=== PATIENT | female | born 1965 | race American Indian/Alaskan Native ===

== ENCOUNTER 2016-10-20 00:07 | Emergency (ER) | payer MEDICAID, MEDICARE ==
[2016-10-20] MEDS ORDERED: NACL 0.9% 1000 ML 1,000 ML IV ONE (01:03)
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
[2016-10-20 02:08] LABS: BUN/Creatinine Ratio 11.66; Calcium 8.1 mg/dL (8.4-10.2); Chloride 101.6 mmol/L (98-107); Potassium 4.4 mmol/L (3.6-5.0)
[2016-10-20 02:19] LABS: Mean Corpuscular HGB Conc 28 % (30-34); Platelet Count 283 K/mm3 (140-440); White Blood Count 13.6 K/mm3 (4.5-11.0)
[2016-10-20 02:27] LABS: Hematocrit 14.8 % (30.3-42.9); Hemoglobin 4.2 gm/dl (10.1-14.3); Mean Corpuscular Hemoglobin 19 pg (28-32); Mean Corpuscular Volume 67 fl (79-97); Red Cell Distribution Width 21.1 % (13.2-15.2)
[2016-10-20 02:44] LABS: Partial Thromboplastin Time < 20.0 Sec. (24.2-36.6)
--- NOTE | 2016-10-20 03:23 | Ultrasound Report ---
FINAL REPORT PROCEDURE: US PELVIC COMPLETE TECHNIQUE: Real-time transabdominal sonography in multiple planes of pelvis was performed with image documentation. This examination was performed without Doppler. Vascular abnormalities, including ovarian torsion, will not be detectable without Doppler evaluation. CPT 99875 HISTORY: pelvic pain, vaginal bleeding COMPARISON: No prior studies are available for comparison. FINDINGS: Uterus and ovaries are not identified. There is a large complex cystic mass in the pelvis measuring 18.6 x 7.8 x 10.1 centimeters. This contains debris and septations. This could be a large ovarian cyst or cystic ovarian neoplasm. Other cystic neoplasm or abscess not excluded. CT of the abdomen and pelvis suggested for further evaluation. No free pelvic fluid is discretely identified. IMPRESSION: Uterus and ovaries are not identified. There is a large complex cystic mass in the pelvis measuring 18.6 x 7.8 x 10.1 centimeters. Please see details above.
--- NOTE | 2016-10-20 03:23 | Ultrasound Report ---
FINAL REPORT PROCEDURE: US PELVIC TRANSVAGINAL TECHNIQUE: Real-time transvaginal sonography in multiple planes of pelvis was performed with image documentation. This examination was performed without Doppler. Vascular abnormalities, including ovarian torsion, will not be detectable without Doppler evaluation. HISTORY: pelvic pain, vaginal bleeding COMPARISON: No prior studies are available for comparison. FINDINGS: Uterus and ovaries are not identified. There is a large complex cystic mass in the pelvis measuring 18.6 x 7.8 x 10.1 centimeters. This contains debris and septations. This could be a large ovarian cyst or cystic ovarian neoplasm. Other cystic neoplasm or abscess not excluded. CT of the abdomen and pelvis suggested for further evaluation. No free pelvic fluid is discretely identified. IMPRESSION: Uterus and ovaries are not identified. There is a large complex cystic mass in the pelvis measuring 18.6 x 7.8 x 10.1 centimeters. Please see details above.
[2016-10-20 03:33] LABS: Basophils % (Manual) 0 % (0.0-1.8); Blastocytes % (Manual) 0 %; Eosinophils % (Manual) 0 % (0.0-4.3); Total Cells Counted Percent 0
[2016-10-20 03:34] LABS: Anisocytosis 1+; Diff Status Complete; Hypochromasia 2+; Microcytosis 1+; Platelet Estimate Consistent w Auto; Target Cells Few
[2016-10-20] MEDS ORDERED: NACL ONE (04:11)
--- NOTE | 2016-10-20 05:10 | Cat Scan Report ---
FINAL REPORT EXAM: CT ABDOMEN PELVIS W CON HISTORY: Cystic pelvic mass TECHNIQUE: CT images are acquired through the Abdomen and Pelvis following intravenous administration contrast. Transaxial, coronal and sagittal reformations are provided. PRIORS: Pelvic ultrasound of the same date. FINDINGS: Partially visualized intrathoracic contents are unremarkable. Cholecystectomy. The liver, pancreas, spleen, and adrenal glands are unremarkable. Kidneys show no worrisome lesions, hydronephrosis, or calculi. Multiple masses have mass effect on the urinary bladder. Within and extending off of the uterine fundus there are multiple lobular masses measuring up to 6.7 x 5.8 x 6 cm and 4.4 x 4.9 x 4.1 cm on sagittal image 91 and coronal image 49. Separately, and centered on the patient's midline, there is a multi septated cystic mass posterior to the uterus measuring 12.3 x 7.4 x 9.6 cm. No pelvic or inguinal lymphadenopathy Small and large bowel are normal in caliber. Appendix is normal. No free air, free fluid, or lymphadenopathy identified. Aorta is normal in course and caliber. Superficial soft tissues are unremarkable. No acute or aggressive appearing skeletal findings. Posterior fusion hardware spans T11 through L3 due to a L1 burst fracture with mild retropulsion. Hardware appears intact. Right T11 and left L3 intrapedicular screws skirt/extend through the respective vertebral body endplates. IMPRESSION: Cystic pelvic mass posterior to the uterus centered on the patient's midline measuring up to 12.3 cm is favored to be right adnexal in origin. Differential diagnosis includes complex ovarian cyst, cystadenoma and cystadenocarcinoma, as well as extra ovarian lesions. Gynecology consultation is recommended for further evaluation. His Heterogeneous lobular likely due to transmural and sub serosal fibroids measuring up to 6.7 cm. There is mass effect on the urinary bladder from the uterus and above described cystic mass.
[2016-10-20] MEDS: NACL 0.9% 500 ML 500 ML IV ONE ×2 (05:16→05:17)
[2016-10-20 12:32] VITALS: BP 147/70
== END 2016-10-20 12:40 | disposition other institution (70) ==
LOC: ED 00:07
DX: D64.9 Anemia, unspecified (principal); D25.1 Intramural leiomyoma of uterus; R19.00 Intra-abdominal and pelvic swelling, mass and lump, unspecified site; Z72.0 Tobacco use
CPT/HCPCS: 36415; 36430; 74177; 76830; 76856; 80048; 83735; 85007; 85025; 85610; 85730; 86850; 86900; 86901; 86920; 96360; 96361; 99285; J7030; J7040; P9016; Q9967

== ENCOUNTER 2018-06-09 14:19 | Emergency (ER) | payer MEDICARE ==
[2018-06-09 15:14] VITALS: BP 139/100
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
[2018-06-09 15:39] LABS: Basophils # (Auto) 0.1 K/mm3 (0.0-0.1); Basophils % (Auto) 0.8 % (0.0-1.8); Eosinophils # (Auto) 0.1 K/mm3 (0.0-0.4); Eosinophils % (Auto) 0.6 % (0.0-4.3); Hematocrit 45.9 % (30.3-42.9); Lymphocytes # (Auto) 1.9 K/mm3 (1.2-5.4); Lymphocytes % (Auto) 23.6 % (13.4-35.0); Mean Corpuscular HGB Conc 33 % (30-34); Mean Corpuscular Volume 93 fl (79-97); Monocytes # (Auto) 0.4 K/mm3 (0.0-0.8); Monocytes % (Auto) 5.1 % (0.0-7.3); Platelet Count 253 K/mm3 (140-440); Red Blood Count 4.95 M/mm3 (3.65-5.03); Red Cell Distribution Width 14.3 % (13.2-15.2)
[2018-06-09 16:03] LABS: Alanine Aminotransferase 17 units/L (7-56); Albumin 4.4 g/dL (3.9-5); BUN/Creatinine Ratio 16; Blood Urea Nitrogen 13 mg/dL (7-17); Calcium 9.7 mg/dL (8.4-10.2); Hemolysis Index 11
[2018-06-09 16:08] LABS: Bilirubin,Direct < 0.2 mg/dL (0-0.2)
[2018-06-09 16:18] LABS: Bilirubin,Urine NEG (Negative); Blood,Urine MOD (Negative); Mucus,Urine FEW /HPF
[2018-06-09 16:19] LABS: Color,Urine Yellow (Yellow)
[2018-06-09] MEDS ORDERED: LEVAQUIN PO STA (19:12)
[2018-06-09] MEDS ORDERED: PERCOCET 5/325 PO STA (19:12)
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
== END 2018-06-09 21:41 | disposition home or self-care (01) ==
LOC: ED 14:19
DX: R10.2 Pelvic and perineal pain (principal); R20.0 Anesthesia of skin; R20.2 Paresthesia of skin; F17.200 Nicotine dependence, unspecified, uncomplicated
CPT/HCPCS: 36415; 80048; 80076; 81001; 83690; 85025; 99284

== ENCOUNTER 2019-01-27 23:41 | Emergency (ER) | payer MEDICARE ==
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
[2019-01-28 02:46] VITALS: BP 175/99
== END 2019-01-28 02:17 | disposition home or self-care (01) ==
LOC: ED 23:41
DX: L29.8 Other pruritus (principal); F17.200 Nicotine dependence, unspecified, uncomplicated; Z98.890 Other specified postprocedural states; Z79.899 Other long term (current) drug therapy
CPT/HCPCS: 99282